=== PATIENT | female | born 1930 | race Caucasian/White ===

== ENCOUNTER 2017-05-05 10:35 | Inpatient (IN) | payer MEDICARE, BC ==
[~2017-05-05] VITALS: Ht 160 cm; Wt 69.0 kg
[~2017-05-05 10:35] MED LIST: BETA1TAB18 PO; DILT180C66 PO; FLUV40CA PO; LANTUS SQ; LORA1TAB PO; MESA800T PO; OMEP20TA23 PO; RIVA20TA PO
[2017-05-05] MEDS ORDERED: normal saline 1000ml 1,000 ML IV ONE ×2 (10:55→13:10)
[2017-05-05] MEDS ORDERED: adenosine 3mg/ml 2ml vial IV ONE (10:55)
[2017-05-05 11:13] LABS: BASOPHILS % (AUTO) 0.1 % (0-1); EOSINOPHILS % (AUTO) 0.7 % (0-6); HEMATOCRIT 32.2 % (35.0-45.0); HEMOGLOBIN 10.8 g/dl (12.0-16.0); LYMPHOCYTES # (AUTO) 0.4 X10'3 (1.1-4.8); LYMPHOCYTES % (AUTO) 8.8 % (21-51); MEAN CORPUSCULAR HEMOGLOBIN 25.8 PG (27.0-31.0); MEAN CORPUSCULAR HGB CONC 33.4 % (33.0-36.5); MEAN CORPUSCULAR VOLUME 77.3 FL (78-98); MONOCYTES # (AUTO) 0.5 X10'3 (0-0.9); MONOCYTES % (AUTO) 10.5 % (2-12); NEUTROPHILS # (AUTO) 3.4 X10'3 (1.8-7.7); NEUTROPHILS % (AUTO) 79.9 % (42-75); PLATELET COUNT 109 X10'3 (140-440); RED BLOOD COUNT 4.17 X10'6 (4.20-5.60); RED CELL DISTRIBUTION WIDTH 15.7 % (11.5-14.5); WHITE BLOOD COUNT 4.3 X10'3 (4.5-11.0)
[2017-05-05] MEDS ORDERED: LORazepam 2 mg/ml vial IV ONE (11:20)
[2017-05-05 11:35] LABS: ALANINE AMINOTRANSFERASE 19 U/L (12-78); ALBUMIN 2.5 G/DL (3.4-5.0); ALBUMIN/GLOBULIN RATIO 0.8 (1.1-1.5); ALKALINE PHOSPHATASE 110 IU/L (46-116); ANION GAP 10 (8-16); ASPARTATE AMINO TRANSFERASE 23 U/L (10-37); BILIRUBIN,TOTAL 0.5 MG/DL (0.1-1.0); BLOOD UREA NITROGEN 30 MG/DL (7-18); CALCIUM 8.4 MG/DL (8.5-10.1); CHLORIDE 108 MMOL/L (99-107); CREATININE 0.81 MG/DL (0.40-0.90); GLUCOSE 85 MG/DL (70-104); MAGNESIUM 1.8 MG/DL (1.5-2.4); POTASSIUM 3.7 MMOL/L (3.5-5.1); SODIUM 142 MMOL/L (135-145); TOTAL CARBON DIOXIDE 23.6 MMOL/L (24-32); TOTAL PROTEIN 5.6 G/DL (6.4-8.2); eGFR 67 ML/MIN
[2017-05-05 11:46] LABS: LARGE PLATELETS FEW; PLATELET ESTIMATE DECREASED
[2017-05-05 11:49] LABS: ANISOCYTOSIS 1+; MICROCYTOSIS 1+; POIKILOCYTOSIS 2+; POLYCHROMASIA 1+
[2017-05-05 11:50] LABS: BURR CELLS 1+; ELLIPTOCYTES FEW; SCHISTOCYTES 1+; TEAR DROP CELLS FEW
[2017-05-05] MEDS ORDERED: diltiazem 5mg/ml 5ml inj. IV ONE ×3 (11:50→13:35)
[2017-05-05] MEDS ORDERED: diltiazem-D5W 125mg/125ml 125 ML IV ONE (12:20)
[2017-05-05] MEDS ORDERED: magnesium Cl slow-release 64mg tablet PO PRN (12:30)
[2017-05-05] MEDS ORDERED: acetaminophen 325mg tablet PO PRN ×2 (12:30)
[2017-05-05] MEDS ORDERED: magnesium 2GM in 50ml NS 50 ML IV PRN (12:30)
[2017-05-05] MEDS ORDERED: potassium Cl 20 mEq SR tablet PO PRN ×2 (12:30)
[2017-05-05] MEDS ORDERED: ondansetron/PF 4mg/2ml inj IV PRN (12:30)
[2017-05-05] MEDS ORDERED: magnesium hydroxide 30ml (MOM) UD suspension PO PRN (12:30)
[2017-05-05] MEDS ORDERED: magnesium 4gm in 100ml NS 100 ML IV PRN (12:30)
[2017-05-05] MEDS ORDERED: mag hydrox/Alum hydrox/simeth 30ml oral suspension PO PRN (12:30)
[2017-05-05] MEDS ORDERED: potassium Cl 40MEQ/NS 500ml 500 ML IV PRN ×2 (12:30)
[2017-05-05] MEDS ORDERED: diltiazem-D5W 125mg/125ml 125 ML IV SCH (12:30)
[2017-05-05] MEDS ORDERED: diltiazem SR 60mg capsule (twice daily) PO ONE (13:25)
[2017-05-05] MEDS ORDERED: morphine 4 MG/ML inj SYRINge IV ONE (13:55)
[2017-05-05 14:41] LABS: CLARITY,URINE CLOUDY (Clear); COLOR,URINE GREEN (Yellow); GLUCOSE, URINE NEGATIVE (Neg); KETONES,URINE 15 mg/dl (Neg); LEUKOCYTE ESTERASE ,URINE MODERATE (Neg); NITRITES, URINE NEGATIVE (Neg); OCCULT BLOOD,URINE LARGE (Neg); PROTEIN,URINE 100 mg/dl (Neg)
[2017-05-05 14:53] LABS: UA COLLECTION TYPE FOLEY CATH
[2017-05-05 14:59] LABS: BACTERIA,URINE 4+ /HPF (Neg); MUCUS STRANDS MODERATE /LPF (Neg); RBC,URINE TNTC /HPF (0-2); RENAL CELLS, URINE FEW /HPF; SQUAMOUS EPITHELIAL CELL,UR FEW /LPF (FEW); TRANSITIONAL EPI CELLS,URINE FEW /HPF; WBC CLUMPS,URINE FEW /HPF (NEGATIVE); WBC,URINE 50-100 /HPF (0-4)
[2017-05-05 15:25] VITALS: BP 132/64
[2017-05-05] MEDS ORDERED: DILT240C51 (16:03)
[2017-05-05] MEDS: cefTRIAXone 1g/NS 100ml IVPB 100 ML IV SCH (16:30)
[2017-05-05 17:00] VITALS: BP 110/97
[2017-05-05 19:00] VITALS: BP 109/86
[2017-05-05] MEDS: LORazepam 1 MG tablet PO SCH (20:37)
[2017-05-05] MEDS: mesalamine 400 mg capsule.DR PO SCH (20:38)
[2017-05-05] MEDS: diltiazem SR 60mg capsule (twice daily) PO SCH (20:38)
[2017-05-05] MEDS ORDERED: temazepam 15mg capsule PO PRN (21:00)
[2017-05-05 23:00] VITALS: BP 116/57
[2017-05-06] VITALS (13 sets, daily range): BP systolic 95–137; BP diastolic 40–88
[2017-05-06 05:26] LABS: HEMATOCRIT 32.8 % (35.0-45.0); HEMOGLOBIN 10.9 g/dl (12.0-16.0); MEAN CORPUSCULAR HEMOGLOBIN 25.5 PG (27.0-31.0); MEAN CORPUSCULAR HGB CONC 33.3 % (33.0-36.5); MEAN CORPUSCULAR VOLUME 76.6 FL (78-98); PLATELET COUNT 103 X10'3 (140-440); RED BLOOD COUNT 4.28 X10'6 (4.20-5.60); RED CELL DISTRIBUTION WIDTH 15.8 % (11.5-14.5); WHITE BLOOD COUNT 3.7 X10'3 (4.5-11.0)
[2017-05-06 06:13] LABS: ALBUMIN 2.4 G/DL (3.4-5.0); ANION GAP 12 (8-16); BLOOD UREA NITROGEN 28 MG/DL (7-18); CALCIUM 8.1 MG/DL (8.5-10.1); CHLORIDE 110 MMOL/L (99-107); GLUCOSE 76 MG/DL (70-104); MAGNESIUM 1.7 MG/DL (1.5-2.4); SODIUM 145 MMOL/L (135-145); TOTAL CARBON DIOXIDE 23.5 MMOL/L (24-32); eGFR 79 ML/MIN
[2017-05-06 06:21] LABS: POTASSIUM 3.8 MMOL/L (3.5-5.1)
[2017-05-06 06:53] LABS: ANISOCYTOSIS 1+; BURR CELLS 1+; ELLIPTOCYTES 1+; PLATELET ESTIMATE DECREASED
[2017-05-06 06:54] LABS: SCHISTOCYTES FEW
[2017-05-06] MEDS: K and/or MAG REPLACEMENT MC SCH (08:00)
[2017-05-06] MEDS ORDERED: enoxaparin 40mg/0.4ml syringe SQ SCH (08:00)
[2017-05-06] MEDS: pantoprazole 40mg Tablet.DR PO SCH (08:39)
[2017-05-06] MEDS: diltiazem SR 60mg capsule (twice daily) PO SCH ×2 (08:39→20:21)
[2017-05-06] MEDS: rivaroxaban 20mg tablet PO SCH (08:40)
[2017-05-06] MEDS: cefTRIAXone 1g/NS 100ml IVPB 100 ML IV SCH (08:40)
[2017-05-06] MEDS: LORazepam 1 MG tablet PO PRN (08:41)
[2017-05-06] MEDS: mesalamine 400 mg capsule.DR PO SCH (08:52)
[2017-05-06] MEDS ORDERED: magnesium 2GM in 50ml NS 50 ML IV ONE (09:10)
[2017-05-06] MEDS: diltiazem-D5W 125mg/125ml 125 ML IV SCH ×2 (09:47→13:38)
[2017-05-06] MEDS: furosemide 40mg/4ml inj IV SCH ×2 (09:58→20:21)
[2017-05-06] MEDS ORDERED: potassium Cl 20 mEq SR tablet PO STA (20:14)
[2017-05-06] MEDS: LORazepam 1 MG tablet PO SCH (20:21)
[2017-05-07] VITALS (13 sets, daily range): BP systolic 102–130; BP diastolic 44–86
[2017-05-07] MEDS: LORazepam 1 MG tablet PO PRN ×2 (01:22→10:06)
[2017-05-07 06:42] LABS: HEMATOCRIT 34.3 % (35.0-45.0); HEMOGLOBIN 11.6 g/dl (12.0-16.0); MEAN CORPUSCULAR HEMOGLOBIN 25.7 PG (27.0-31.0); MEAN CORPUSCULAR HGB CONC 33.9 % (33.0-36.5); MEAN CORPUSCULAR VOLUME 75.7 FL (78-98); MEAN PLATELET VOLUME 10.6 FL (7.4-10.4); PLATELET COUNT 126 X10'3 (140-440); RED BLOOD COUNT 4.53 X10'6 (4.20-5.60); RED CELL DISTRIBUTION WIDTH 15.7 % (11.5-14.5); WHITE BLOOD COUNT 4.7 X10'3 (4.5-11.0)
[2017-05-07 07:07] LABS: ALBUMIN 2.7 G/DL (3.4-5.0); ANION GAP 13 (8-16); BLOOD UREA NITROGEN 16 MG/DL (7-18); BUN/CREATININE RATIO 23.5 (6.6-38.0); CALCIUM 8.8 MG/DL (8.5-10.1); CHLORIDE 105 MMOL/L (99-107); CREATININE 0.68 MG/DL (0.40-0.90); GLUCOSE 168 MG/DL (70-104); MAGNESIUM 1.8 MG/DL (1.5-2.4); POTASSIUM 3.9 MMOL/L (3.5-5.1); SODIUM 142 MMOL/L (135-145); eGFR 82 ML/MIN
[2017-05-07] MEDS: K and/or MAG REPLACEMENT MC SCH (08:00)
[2017-05-07] MEDS: cefTRIAXone 1g/NS 100ml IVPB 100 ML IV SCH (08:45)
[2017-05-07] MEDS: rivaroxaban 20mg tablet PO SCH (08:50)
[2017-05-07] MEDS: diltiazem SR 60mg capsule (twice daily) PO SCH ×2 (08:50→20:05)
[2017-05-07] MEDS: pantoprazole 40mg Tablet.DR PO SCH (08:50)
[2017-05-07] MEDS: furosemide 40mg/4ml inj IV SCH ×2 (08:51→20:06)
[2017-05-07] MEDS: potassium Cl 20 mEq SR tablet PO SCH ×2 (12:22→20:06)
[2017-05-07] MEDS: amiodarone 200mg tablet PO SCH ×2 (12:22→20:06)
[2017-05-07] MEDS: magnesium Cl slow-release 64mg tablet PO SCH ×2 (12:22→20:06)
[2017-05-07] MEDS: lactobacillus rhamnosus 10,000 MMU CELLS/CAPSULE PO SCH (16:52)
[2017-05-07] MEDS: LORazepam 1 MG tablet PO SCH (21:55)
[2017-05-08] VITALS (10 sets, daily range): BP systolic 91–125; BP diastolic 38–65
[2017-05-08] MEDS: LORazepam 1 MG tablet PO PRN (03:47)
[2017-05-08 05:19] LABS: HEMATOCRIT 35.2 % (35.0-45.0); HEMOGLOBIN 11.7 g/dl (12.0-16.0); MEAN CORPUSCULAR HEMOGLOBIN 25.4 PG (27.0-31.0); MEAN CORPUSCULAR HGB CONC 33.1 % (33.0-36.5); MEAN CORPUSCULAR VOLUME 76.8 FL (78-98); MEAN PLATELET VOLUME 10.6 FL (7.4-10.4); PLATELET COUNT 132 X10'3 (140-440); RED BLOOD COUNT 4.59 X10'6 (4.20-5.60); RED CELL DISTRIBUTION WIDTH 15.2 % (11.5-14.5); WHITE BLOOD COUNT 5.9 X10'3 (4.5-11.0)
[2017-05-08 05:26] LABS: ALBUMIN 2.6 G/DL (3.4-5.0); ANION GAP 9 (8-16); BLOOD UREA NITROGEN 15 MG/DL (7-18); BUN/CREATININE RATIO 21.1 (6.6-38.0); CHLORIDE 104 MMOL/L (99-107); CREATININE 0.71 MG/DL (0.40-0.90); GLUCOSE 182 MG/DL (70-104); MAGNESIUM 1.8 MG/DL (1.5-2.4); POTASSIUM 3.9 MMOL/L (3.5-5.1); SODIUM 141 MMOL/L (135-145); TOTAL CARBON DIOXIDE 28.1 MMOL/L (24-32); eGFR 78 ML/MIN
[2017-05-08] MEDS: K and/or MAG REPLACEMENT MC SCH (08:00)
[2017-05-08] MEDS: furosemide 40mg/4ml inj IV SCH ×2 (08:24→19:50)
[2017-05-08] MEDS: cefTRIAXone 1g/NS 100ml IVPB 100 ML IV SCH (08:24)
[2017-05-08] MEDS: potassium Cl 20 mEq SR tablet PO SCH ×2 (08:33→19:52)
[2017-05-08] MEDS: magnesium Cl slow-release 64mg tablet PO SCH ×2 (08:34→20:00)
[2017-05-08] MEDS: lactobacillus rhamnosus 10,000 MMU CELLS/CAPSULE PO SCH ×2 (08:34→17:04)
[2017-05-08] MEDS: rivaroxaban 20mg tablet PO SCH (08:34)
[2017-05-08] MEDS: amiodarone 200mg tablet PO SCH ×2 (08:34→19:51)
[2017-05-08] MEDS: LORazepam 1 MG tablet PO SCH (08:34)
[2017-05-08] MEDS: pantoprazole 40mg Tablet.DR PO SCH (08:35)
[2017-05-08] MEDS: diltiazem SR 60mg capsule (twice daily) PO SCH ×2 (08:35→19:51)
[2017-05-08] MEDS ORDERED: LORazepam 1 MG tablet PO PRN (11:23)
[2017-05-08] MEDS: LORazepam 0.5 MG tablet PO SCH (19:51)
[2017-05-09 02:00] VITALS: BP 119/64
[2017-05-09 05:42] LABS: HEMOGLOBIN 11.8 g/dl (12.0-16.0); MEAN CORPUSCULAR HEMOGLOBIN 25.5 PG (27.0-31.0); MEAN CORPUSCULAR HGB CONC 33.8 % (33.0-36.5); MEAN CORPUSCULAR VOLUME 75.4 FL (78-98); MEAN PLATELET VOLUME 10.2 FL (7.4-10.4); PLATELET COUNT 146 X10'3 (140-440); RED BLOOD COUNT 4.64 X10'6 (4.20-5.60); RED CELL DISTRIBUTION WIDTH 15.7 % (11.5-14.5); WHITE BLOOD COUNT 5.1 X10'3 (4.5-11.0)
[2017-05-09 05:55] LABS: ALBUMIN 2.4 G/DL (3.4-5.0); ANION GAP 7 (8-16); BLOOD UREA NITROGEN 19 MG/DL (7-18); BUN/CREATININE RATIO 28.4 (6.6-38.0); CALCIUM 9.2 MG/DL (8.5-10.1); CHLORIDE 105 MMOL/L (99-107); CREATININE 0.67 MG/DL (0.40-0.90); GLUCOSE 152 MG/DL (70-104); MAGNESIUM 1.8 MG/DL (1.5-2.4); POTASSIUM 4.5 MMOL/L (3.5-5.1); SODIUM 142 MMOL/L (135-145); TOTAL CARBON DIOXIDE 30.1 MMOL/L (24-32); eGFR 83 ML/MIN
[2017-05-09 06:00] VITALS: BP 125/66
[2017-05-09] MEDS: K and/or MAG REPLACEMENT MC SCH (08:00)
[2017-05-09] MEDS: potassium Cl 20 mEq SR tablet PO SCH ×2 (08:00→20:00)
[2017-05-09] MEDS: pantoprazole 40mg Tablet.DR PO SCH (09:15)
[2017-05-09] MEDS: rivaroxaban 20mg tablet PO SCH (09:16)
[2017-05-09] MEDS: LORazepam 0.5 MG tablet PO SCH ×2 (09:16→20:00)
[2017-05-09] MEDS: amiodarone 200mg tablet PO SCH ×2 (09:17→19:57)
[2017-05-09] MEDS: diltiazem SR 60mg capsule (twice daily) PO SCH (09:17)
[2017-05-09] MEDS: magnesium Cl slow-release 64mg tablet PO SCH ×2 (09:18→19:56)
[2017-05-09] MEDS: lactobacillus rhamnosus 10,000 MMU CELLS/CAPSULE PO SCH ×2 (09:18→19:55)
[2017-05-09] MEDS: cefTRIAXone 1g/NS 100ml IVPB 100 ML IV SCH (09:18)
[2017-05-09] MEDS: furosemide 40mg/4ml inj IV SCH ×2 (09:19→19:57)
[2017-05-09 11:00] VITALS: BP 134/65
[2017-05-09 16:30] VITALS: BP 118/51
[2017-05-09 16:59] VITALS: BP 125/63
[2017-05-09 19:00] VITALS: BP 131/50
[2017-05-09] MEDS: diltiazem CD 120mg capsule (once-daily) PO SCH (19:56)
[2017-05-10] VITALS: BP 136/54
[2017-05-10 05:55] LABS: HEMATOCRIT 35.1 % (35.0-45.0); HEMOGLOBIN 11.7 g/dl (12.0-16.0); MEAN CORPUSCULAR HEMOGLOBIN 25.4 PG (27.0-31.0); MEAN CORPUSCULAR HGB CONC 33.3 % (33.0-36.5); MEAN CORPUSCULAR VOLUME 76.3 FL (78-98); PLATELET COUNT 170 X10'3 (140-440); RED CELL DISTRIBUTION WIDTH 15.6 % (11.5-14.5); WHITE BLOOD COUNT 5.4 X10'3 (4.5-11.0)
[2017-05-10 06:54] LABS: ALBUMIN 2.4 G/DL (3.4-5.0); ANION GAP 7 (8-16); BLOOD UREA NITROGEN 18 MG/DL (7-18); BUN/CREATININE RATIO 27.3 (6.6-38.0); CALCIUM 8.9 MG/DL (8.5-10.1); CHLORIDE 104 MMOL/L (99-107); CREATININE 0.66 MG/DL (0.40-0.90); GLUCOSE 170 MG/DL (70-104); MAGNESIUM 1.6 MG/DL (1.5-2.4); POTASSIUM 3.6 MMOL/L (3.5-5.1); SODIUM 143 MMOL/L (135-145); TOTAL CARBON DIOXIDE 31.7 MMOL/L (24-32); eGFR 85 ML/MIN
[2017-05-10] MEDS: K and/or MAG REPLACEMENT MC SCH (07:00)
[2017-05-10 07:25] VITALS: BP 127/58
[2017-05-10] MEDS: pantoprazole 40mg Tablet.DR PO SCH (08:14)
[2017-05-10] MEDS: diltiazem CD 120mg capsule (once-daily) PO SCH (08:14)
[2017-05-10] MEDS: potassium Cl 20 mEq SR tablet PO SCH (08:14)
[2017-05-10] MEDS: magnesium Cl slow-release 64mg tablet PO SCH (08:14)
[2017-05-10] MEDS: cefTRIAXone 1g/NS 100ml IVPB 100 ML IV SCH (08:14)
[2017-05-10] MEDS: LORazepam 0.5 MG tablet PO SCH (08:14)
[2017-05-10] MEDS: furosemide 40mg/4ml inj IV SCH (08:14)
[2017-05-10] MEDS: lactobacillus rhamnosus 10,000 MMU CELLS/CAPSULE PO SCH (08:14)
[2017-05-10] MEDS: amiodarone 200mg tablet PO SCH (08:14)
[2017-05-10] MEDS: rivaroxaban 20mg tablet PO SCH (08:14)
[2017-05-10] MEDS ORDERED: POTA10TA19 PO (11:27)
[2017-05-10] MEDS ORDERED: FURO20TA4 PO (11:27)
[2017-05-10] MEDS ORDERED: AMOX-422 PO (11:27)
[2017-05-10] MEDS ORDERED: AMIO200T57 PO (11:27)
[2017-05-10 11:33] VITALS: BP 108/56
== END 2017-05-10 13:15 | disposition home health service (06) | DRG 291 ==
LOC: ER 10:35 → ED HOLD 12:26 → PCU 3S 15:25 → MED 3N 05-09 16:30
PROVIDERS: ADMIT Family Medicine; ATTEND Family Medicine
DX: I11.0 Hypertensive heart disease with heart failure (principal); G93.40 Encephalopathy, unspecified; I47.2 Ventricular tachycardia; I48.91 Unspecified atrial fibrillation; D64.9 Anemia, unspecified; E11.9 Type 2 diabetes mellitus without complications; E86.0 Dehydration; E78.5 Hyperlipidemia, unspecified; F41.1 Generalized anxiety disorder; N39.0 Urinary tract infection, site not specified; I50.33 Acute on chronic diastolic (congestive) heart failure; I49.3 Ventricular premature depolarization; R09.02 Hypoxemia; Z96.642 Presence of left artificial hip joint; S42.91XD Fracture of right shoulder girdle, part unspecified, subsequent encounter for fracture with routine healing; W18.30XD Fall on same level, unspecified, subsequent encounter; Z66 Do not resuscitate; Z90.710 Acquired absence of both cervix and uterus; Z90.49 Acquired absence of other specified parts of digestive tract; Z79.4 Long term (current) use of insulin; Z79.01 Long term (current) use of anticoagulants; Z79.899 Other long term (current) drug therapy; Z85.72 Personal history of non-Hodgkin lymphomas; Y93.89 Activity, other specified; Y92.89 Other specified places as the place of occurrence of the external cause; Y99.8 Other external cause status
CPT/HCPCS: 36415; 71045; 73030; 80048; 80053; 81001; 82948; 83735; 83880; 84443; 85025; 85027; 87070; 87088; 93005; 93306; 97034; 97110; 97162; 97530; 99285; A4315; A6213; A6250; J0153; J0696; J1940; J2060; J2270; J3475; J3490; J7030